=== PATIENT | female | born 1950 | race Caucasian/White ===

== ENCOUNTER 2017-04-23 20:37 | Emergency (ER) | payer MEDICARE, MEDICAID ==
[2017-04-23 20:47] VITALS: BMI 22.3
[2017-04-23 21:00] VITALS: RESP 18; O2SAT 99
--- NOTE | 2017-04-23 21:23 | ED PDOC ---
"Arrival/HPI - General Chief Complaint: GI Problem Time Seen by Provider: 04/23/17 21:03 Historian: Patient - History of Present Illness Narrative History of Present Illness (Text): 04/23/17 21:16 66 y/o female, no pmh, nkda, c/o abdominal pain with nausea x 1 week. Lower abdominal pain with nausea for 1 week, vomiting started today and feeling fatigue, no night sweat, no fever or chills, seen by Dr. Kat yesterday which given antiemetic and pepcid with limited relief which prompted her to come to the ER. Pt. has no chest pain or shortness of breath, no black color stool, admits feeling fatigue, no other medical or psychological complaints. Past Medical History - Provider Review Nursing Documentation Reviewed: Yes - Psychiatric Hx Substance Use: No - Anesthesia Hx Anesthesia: No Family/Social History - Physician Review Nursing Documentation Reviewed: Yes Family/Social History: Unknown Family HX Smoking Status: no Hx Alcohol Use: No Hx Substance Use: No Allergies/Home Meds Allergies/Adverse Reactions: Allergies No Known Allergies Allergy (Verified 04/23/17 20:47) Review of Systems - Review of Systems Constitutional: absent: Fatigue, Fevers Eyes: absent: Vision Changes ENT: absent: Hearing Changes Respiratory: absent: SOB, Cough Cardiovascular: absent: Chest Pain Gastrointestinal: Abdominal Pain, Nausea, Vomiting. absent: Diarrhea Musculoskeletal: absent: Arthralgias Skin: absent: Rash, Pruritis Neurological: absent: Headache, Dizziness Psychiatric: absent: Anxiety, Depression, Suicidal Ideation Physical Exam Vital Signs Reviewed: Yes Vital Signs Temp Pulse Resp BP Pulse Ox 04/23/17 20:37 98.4 F 80 18 162/84 H 99 Temperature: Afebrile Blood Pressure: Hypertensive Pulse: Regular Respiratory Rate: Normal Appearance: Positive for: Well-Appearing, Non-Toxic, Comfortable Pain Distress: Mild Mental Status: Positive for: Alert and Oriented X 3 - Systems Exam Head: Present: Atraumatic, Normocephalic Pupils: Present: PERRL Extroacular Muscles: Present: EOMI Conjunctiva: Present: Normal Mouth: Present: Moist Mucous Membranes Neck: Present: Normal Range of Motion Respiratory/Chest: Present: Clear to Auscultation, Good Air Exchange. No: Respiratory Distress, Accessory Muscle Use Cardiovascular: Present: Regular Rate and Rhythm, Normal S1, S2. No: Murmurs Abdomen: Present: Tenderness (epigastric and lower abdominal/suprapubic tenderness), Normal Bowel Sounds. No: Distention, Peritoneal Signs, Rebound, Guarding Back: Present: Normal Inspection Upper Extremity: Present: Normal Inspection. No: Cyanosis, Edema Lower Extremity: Present: Normal Inspection. No: Edema Neurological: Present: GCS=15, Speech Normal, Motor Func Grossly Intact, Gait Normal, Memory Normal Skin: Present: Warm, Dry, Normal Color. No: Rashes Psychiatric: Present: Alert, Oriented x 3, Normal Insight, Normal Concentration Medical Decision Making ED Course and Treatment: 04/23/17 21:23 -labs/ua/lipase/rapid flu -CT abdomen and pelvis -Chest xray -EKG -IVF/pepcid/zofran -observe and reassess 04/24/17 00:14 -Rapid flu is negative -Labs are non-significant except potassium 3.4 (potassium chloride 20 meq po ordered). -UA show +UTI, rocephine 1gm IV ordered -CT abdomen and pelvis show No evidence of acute pathology. -Pt. has no abdominal pain now, feeling much better, relief with the pepcid/ zofran, tolerating po, discussed the labs/radiology study with the patient and family, they want to be discharged home and doesn't want to be admitted. -Case/labs/radiology results discussed with Dr. Zamora, he agreed on the diagnosis/treatment and discharge plan. -Discharge home with pepcid, zofran, macrobid, bed rest, stay hydrated, follow up with your own pmd and GI within 2 day, return to the ER for any new or worsening signs or symptoms. - Lab Interpretations Lab Results: 04/23/17 21:40 04/23/17 21:40 Lab Results 04/23/17 22:39: Urine Color Straw, Urine Appearance Clear, Urine pH 8.0, Ur Specific [place] 1.015, Urine Protein Negative, Urine Glucose (UA) Negative, Urine Ketones Negative, Urine Blood Negative, Urine Nitrate Negative, Urine Bilirubin Negative, Urine Urobilinogen 0.2, Ur Leukocyte Esterase Small H, Urine RBC Negative, Urine WBC 0 - 2, Ur Epithelial Cells 0 - 2, Urine Bacteria Neg 04/23/17 22:04: Influenza Typ A,B (EIA) Negative for flu a/b 04/23/17 21:40: Sodium 142, Potassium 3.4 L, Chloride 104, Carbon Dioxide 26, Anion Gap 16, BUN 15, Creatinine 0.6 L, Est GFR ( Amer) > 60, Est GFR ( Non-Af Amer) > 60, Random Glucose 120 H, Calcium 10.5, Magnesium 2.2, Total Bilirubin 0.5, AST 30, ALT 31, Alkaline Phosphatase 55, Lactate Dehydrogenase 574, Total Creatine Kinase 113, Troponin I < 0.01, NT-Pro-B Natriuret Pep 145, Total Protein 7.7, Albumin 4.5, Globulin 3.2, Albumin/Globulin Ratio 1.4, Lipase 108 04/23/17 21:40: WBC 10.0 D, RBC 4.46, Hgb 13.7, Hct 41.1, MCV 92.2, MCH 30.7, MCHC 33.3, RDW 12.7, Plt Count 214, MPV 10.2, Gran % 63.7, Lymph % (Auto) 31.2, [place]ata[place] % (Auto) 4.2, Eos % (Auto) 0.7 L, Baso % (Auto) 0.2, Gran # 6.37, Lymph # ( Auto) 3.1, [place] # (Auto) 0.4, Eos # (Auto) 0.1, Baso # (Auto) 0.02 - RAD Interpretation Radiology Orders: 04/23/17 21:25 ABD & PELVIS IV CONTRAST ONLY [CT] Stat Lower thorax: No evidence of acute pathology. ABDOMEN: Liver: Unremarkable. No mass. Gallbladder and bile ducts: Unremarkable. No calcified stones. No ductal dilation. Pancreas: Unremarkable. No mass. No ductal dilation. Spleen: Unremarkable. No splenomegaly. Adrenals: Unremarkable. No mass. Kidneys and ureters: Cyst in left kidney. Kidneys are otherwise unremarkable. No hydronephrosis Stomach and bowel: No areas of wall thickening in the large bowel. No evidence of large bowel obstruction. No pericolonic inflammatory changes to suggest acute diverticulitis. Appendix: Normal appendix seen. JUANCARLOS THOMPSON | Preliminary Radiology Report PLAN REP (QA) DISCREPANCY? If there is a discrepancy between the preliminary and final interpretation, please notify [facility] via [email or web address]. If you do not have access to our QA portal, call our QA team at [phone] CONFIDENTIALITY STATEMENT This report is intended only for the use of the referring physician, and only in accordance with law, If you received this in error, call [phone] Page 2 of 2 PELVIS: Bladder: Unremarkable. No mass. Reproductive: Calcifications seen within the endometrial cavity. Uterus is otherwise unremarkable. ABDOMEN and PELVIS: Intraperitoneal space: Unremarkable. No free air. No significant fluid collection. Bones/joints: Degenerative changes in the spine. No evidence of fracture. No dislocation. Soft tissues: Unremarkable. Vasculature: Unremarkable. No abdominal aortic aneurysm. Lymph nodes: Unremarkable. No enlarged lymph nodes. IMPRESSION: No evidence of acute pathology. Thank you for allowing us to participate in the care of your patient. Dictated and Authenticated by: Trudy Florez MD 04/24/2017 12:03 AM Eastern Time ([place] & [place]) Brewing Director: Radiologist - Medication Orders Current Medication Orders: Sodium Chloride (Sodium Chloride 0.9%) 1,000 mls @ 100 mls/hr IV .Q10H ROSALVA Last Admin: 04/23/17 21:35 Dose: 100 mls/hr eMAR Start Stop Document 04/23/17 21:35 TONYA (Rec: 04/23/17 21:35 TONYA [id number]) Intravenous Solution Start Date 04/23/17 Start Time 21:35 Discontinued Medications Famotidine (Pepcid) 20 mg IVP STAT STA Stop: 04/23/17 21:35 Last Admin: 04/23/17 21:38 Dose: 20 mg IVP Administration Document 04/23/17 21:38 TONYA (Rec: 04/23/17 21:38 TONYA [id number]) Charges for Administration # of IVP Administrations 1 Ondansetron HCl (Zofran Inj) 4 mg IVP STAT STA Stop: 04/23/17 21:35 Last Admin: 04/23/17 21:39 Dose: 4 mg IVP Administration Document 04/23/17 21:39 TONYA (Rec: 04/23/17 21:39 TONYA [id number]) Charges for Administration # of IVP Administrations 1 Potassium Chloride (K-Dur 20 Meq Er Tab) 20 meq PO STAT STA Stop: 04/23/17 22:15 - PA / DRIVER MANAGER / Resident Statement MD/DO has reviewed & agrees with the documentation as recorded. Disposition/Present on Arrival - Present on Arrival Any Indicators Present on Arrival: No History of DVT/PE: No History of Uncontrolled Diabetes: No Urinary Catheter: No History of Decub. Ulcer: No History Surgical Site Infection Following: None - Disposition Have Diagnosis and Disposition been Completed?: Yes Diagnosis: Abdominal pain, UTI (urinary tract infection) Disposition: HOME/ ROUTINE Disposition Time: 21:24 Patient Plan: Discharge Patient Problems: Current Active Problems Problem Status Onset Abdominal pain Acute UTI (urinary tract infection) Acute Condition: IMPROVED Additional Instructions: -Discharge home with pepcid, zofran, macrobid, bed rest, stay hydrated, follow up with your own pmd and GI within 2 day, return to the ER for any new or worsening signs or symptoms. Prescriptions: Famotidine [Pepcid] 20 mg PO BID #30 tab Nitrofurantoin Macrocrystals [Macrobid] 100 mg PO BID #14 cap Ondansetron [Zofran] 4 mg PO Q8H PRN #10 tab PRN Reason: Nausea/Vomiting Referrals: Narinder Kat MD [Primary Care Provider] - Follow up with primary Alexei Petersen MD [Staff Provider] - Follow up with primary Forms: WORK NOTE"
[2017-04-23] MEDS ORDERED: Sodium Chloride 0.9% 1,000 ML IV SCH (21:30)
[2017-04-23 21:52] LABS: BASO # 0.02 K/mm3 (0.0-2.0); BASO % 0.2 % (0.0-3.0); EOS # 0.1 (0.0-0.7); EOS % 0.7 % (1.5-5.0); GRAN # 6.37 (1.4-6.5); GRAN % 63.7 % (50.0-68.0); HEMOGLOBIN 13.7 g/dL (12.0-16.0); LYMPH # 3.1 (1.2-3.4); LYMPH % 31.2 % (22.0-35.0); MEAN CELL VOLUME 92.2 fl (80.0-105.0); MEAN CORPUSCULAR HEMOGLOBIN 30.7 pg (25.0-35.0); MEAN CORPUSCULAR HGB CONC 33.3 g/dl (31.0-37.0); MEAN PLATELET VOLUME 10.2 fl (7.0-11.0); MONO # 0.4 (0.1-0.6); MONO % 4.2 % (1.0-6.0); RBC 4.46 10^6/uL (3.5-6.1); RED CELL DISTRIBUTION WIDTH 12.7 % (11.5-14.5)
[2017-04-23 22:01] LABS: ALB/GLOB RATIO 1.4 (1.1-1.8); ALBUMIN 4.5 g/dL (3.0-4.8); ALT/SGPT 31 U/L (7-56); AST/SGOT 30 U/L (14-36); BLOOD UREA NITROGEN 15 mg/dL (7-21); CALCIUM 10.5 mg/dL (8.4-10.5); GFR AFRICAN-AMERICAN > 60; GFR NON-AFRICAN AMERICAN > 60; LIPASE 108 U/L (23-300)
[2017-04-23 22:12] LABS: B-TYPE NATRIURETIC PEPTIDE 145 pg/mL (0-450); TROPONIN I < 0.01 ng/mL
[2017-04-23] MEDS ORDERED: Potassium Chloride 20 mEq ER Tab PO STA (22:14)
[2017-04-23] MEDS ORDERED: Iohexol 350 MG/100 ML VIAL ONE (22:44)
[2017-04-23 22:48] LABS: URINE BILIRUBIN NEGATIVE (NEGATIVE); URINE BLOOD NEGATIVE (NEGATIVE); URINE GLUCOSE (UA) NEGATIVE (NEGATIVE); URINE LEUKOCYTE ESTERASE SMALL Leu/uL (NEGATIVE); URINE PROTEIN NEGATIVE mg/dL (<30 mg/dL); URINE UROBILINOGEN 0.2 E.U./dL (<1 E.U./dL)
[2017-04-23 22:53] LABS: URINE APPEARANCE CLEAR (CLEAR); URINE COLOR STRAW (YELLOW)
[2017-04-23 23:05] LABS: URINE BACTERIA NEG (NEG); URINE EPITHELIAL CELLS 0 - 2 /hpf (0-5); URINE RBC NEGATIVE /hpf (0-2); URINE WBC 0 - 2 /hpf (0-6)
[2017-04-24] MEDS ORDERED: cefTRIAXone 1 gm 1 GM/100 ML BAG IVPB STA (00:06)
[2017-04-24 00:54] VITALS: BP 144/70; PULSE 76; TEMP 98.1
--- NOTE | 2017-04-24 09:38 | CT ---
PROCEDURE: CT Abdomen and Pelvis with contrast HISTORY: Lower abdominal pain x 1 week with nausea COMPARISON: None. TECHNIQUE: Contrast dose: 100 cc Omnipaque 350. Radiation dose: Total exam DLP = 358.83 mGy-cm. This CT exam was performed using one or more of the following dose reduction techniques: Automated exposure control, adjustment of the mA and/or kV according to patient size, and/or use of iterative reconstruction technique. FINDINGS: LOWER THORAX: Unremarkable. LIVER: Unremarkable. No gross lesion or ductal dilatation. GALLBLADDER AND BILE DUCTS: Unremarkable. PANCREAS: Unremarkable. No gross lesion or ductal dilatation. SPLEEN: Unremarkable. ADRENALS: Unremarkable. No mass. KIDNEYS AND URETERS: Unremarkable. No hydronephrosis. No solid mass. Simple cyst left kidney 1.1 cm. VASCULATURE: Unremarkable. No aortic aneurysm. BOWEL: Unremarkable. No obstruction. No gross mural thickening. APPENDIX: Normal appendix. PERITONEUM: Unremarkable. No free fluid. No free air. LYMPH NODES: Unremarkable. No enlarged lymph nodes. BLADDER: Unremarkable. REPRODUCTIVE: Unremarkable. BONES: No acute fracture. OTHER FINDINGS: None. IMPRESSION: No acute findings related to/accounting for the clinical presentation. Additional benign and/or incidental findings described above. Concordant results (preliminary interpretation) provided by Nintu Oy. Procedure Completed: 22:56 Preliminary ([facility]) Report: Dictated and Authenticated: 00:03 April 24, 2017. Final Interpretation: 09:37 April 24, 2017.
== END 2017-04-24 01:15 | disposition home or self-care (01) ==
LOC: ED 20:37
DX: N39.0 Urinary tract infection, site not specified (principal); R10.9 Unspecified abdominal pain
CPT/HCPCS: 74177; 80053; 81001; 82550; 83615; 83690; 83735; 83880; 84484; 85025; 87086; 87804; 96365; 96374; 96375; 99285; J0696; J2405; J7040; Q9967